=== PATIENT | male | born 1980 ===

== ENCOUNTER 2023-05-05 23:22 | Emergency (ER) | payer MEDICAID ==
[~2023-05-05] VITALS: Ht 172.7 cm; Wt 97.5 kg
[2023-05-06 03:19] VITALS: BP 130/84
== END 2023-05-06 03:20 | disposition home or self-care (01) ==
LOC: ED 23:22
DX: F19.10 Other psychoactive substance abuse, uncomplicated (principal); F10.129 Alcohol abuse with intoxication, unspecified
CPT/HCPCS: 99284